=== PATIENT | female | born 1990 | race Hispanic/Latino ===

== ENCOUNTER → 2016-11-23 | Outpatient (REF) | payer OTHER | LOC: M SFHCLUC 16:52 | PROVIDERS: ATTEND Nurse Practitioner Family | DX: J02.9 Acute pharyngitis, unspecified (principal) ==

== ENCOUNTER → 2017-03-01 | Outpatient (CLI) | payer OTHER | LOC: M LDO 19:29 | DX: O26.893 Other specified pregnancy related conditions, third trimester (principal); Z3A.32 32 weeks gestation of pregnancy; R10.2 Pelvic and perineal pain | CPT/HCPCS: 59025 ==

== ENCOUNTER 2017-03-11 14:29 | Emergency (ER) | payer OTHER ==
[2017-03-11] MEDS: ONDANSETRON 4 MG ORAL DISINTEGRATING TAB (S0181) PO (18:30)
[2017-03-11 19:15] LABS: INFLUENZA A AMPLIFICATION NEGATIVE (NEGATIVE); INFLUENZA B AMPLIFICATION NEGATIVE (NEGATIVE); RSV AMPLIFICATION NEGATIVE (NEGATIVE)
== END 2017-03-11 19:51 | disposition home or self-care (01) ==
LOC: M ED 14:29
DX: O98.513 Other viral diseases complicating pregnancy, third trimester (principal); J02.9 Acute pharyngitis, unspecified; Z3A.34 34 weeks gestation of pregnancy; Z20.828 Contact with and (suspected) exposure to other viral communicable diseases
CPT/HCPCS: 87081

== ENCOUNTER 2017-04-14 09:32 | Inpatient (IN) | payer OTHER ==
[2017-04-14 11:55] LABS: HEMATOCRIT 33.6 % (36.0-47.0); HEMOGLOBIN 10.9 g/dl (12.0-16.0); MEAN CORPUSCULAR HEMOGLOBIN 25.9 pg (27.0-33.0); MEAN CORPUSCULAR HGB CONC 32.4 g/dl (32.0-36.5); MEAN CORPUSCULAR VOLUME 79.8 fl (80.0-96.0); PLATELET COUNT, AUTOMATED 140 10^3/uL (150-450); RED BLOOD COUNT 4.21 10^6/uL (4.00-5.40); RED CELL DISTRIBUTION WIDTH 14.1 % (11.5-14.5)
[2017-04-14] MEDS: miSOPROStol 50 MCG 1/2 TAB (S0191) PO ×2 (12:41→18:02)
[2017-04-14] MEDS: LR 1,000 ML IV ×2 (19:29→23:30)
[2017-04-14] MEDS: BUTORPHANOL 2 MG/ML INJ (J0595) IV (20:47)
[2017-04-14] MEDS: LACTATED RINGER'S 1000 ML IV (22:00)
[2017-04-14] MEDS ORDERED: FENTANYL 2MCG/ML ROPIVACAINE 0.2% IN 0.9% NACL 200ML IVBAG As Ordered (23:04)
[2017-04-15] MEDS ORDERED: ePHEDrine SULFATE 25 MG/5 ML(5MG/ML) SYRINGE As Ordered (00:04)
[2017-04-15] MEDS: ePHEDrine SULFATE 25 MG/5 ML(5MG/ML) SYRINGE IV ×2 (00:13→00:23)
[2017-04-15] MEDS ORDERED: OXYTOCIN DRIP 30 UNITS in APPROPRIATE DILUENT 1 EA IV (00:15)
[2017-04-15] MEDS ORDERED: ONDANSETRON 4MG/2ML VIAL (J2405) IV (00:45)
[2017-04-15] MEDS ORDERED: EPIDURAL/PCA KEYS XX (00:45)
[2017-04-15] MEDS ORDERED: REFRIGERATOR IV KEYS XX (00:45)
[2017-04-15] MEDS ORDERED: LACTATED RINGER'S 1000 ML IV (00:45)
[2017-04-15] MEDS ORDERED: diphenhydrAMINE INJ 50MG/ML VIAL (J1200) IV (00:45)
[2017-04-15] MEDS: FENTANYL/ROPIVACAINE/NACL BAG 200 ML EPIDURAL (00:45)
[2017-04-15] MEDS ORDERED: NALOXONE INJ 0.4 MG/1 ML VIAL (J2310) IV (00:45)
[2017-04-15] MEDS ORDERED: EPIDURAL COMMENT XX (00:45)
[2017-04-15] MEDS: OXYTOCIN DRIP 30 UNITS in APPROPRIATE DILUENT 1 EA IV (03:02)
[2017-04-15] MEDS: miSOPROStol 200 MCG TAB (S0191) PR (03:15)
[2017-04-15] MEDS ORDERED: DOCUSATE SODIUM 100 MG CAP PO (03:15)
[2017-04-15] MEDS ORDERED: DIBUCAINE 1% OINTMENT 30GM TOP (03:15)
[2017-04-15] MEDS: LR 1,000 ML IV (03:29)
[2017-04-15] MEDS: IBUPROFEN 800 MG TAB PO ×2 (06:10→17:31)
[2017-04-15] MEDS: PRENATAL VITAMINS CHEWABLE TABLET PO (07:25)
[2017-04-15] MEDS: MEASLES,MUMPS,RUBELLA VACCINE INJ (MMR-II) (90707) SC (09:07)
[2017-04-15] MEDS: RHOGAM 300 MCG (1500 IU) INJ (J2790) IM (09:07)
[2017-04-15] MEDS: ACETAMINOPHEN 500 MG TAB PO (12:55)
[2017-04-16] MEDS: PRENATAL VITAMINS CHEWABLE TABLET PO (09:00)
== END 2017-04-16 12:45 | disposition home or self-care (01) | DRG 775 ==
LOC: M LDO 09:32 → M OBS 04-15 05:30 → M LDI 11:43
PROVIDERS: Obstetrics & Gynecology
PROC: 10E0XZZ Delivery of Products of Conception, External Approach (ICD-10-PCS; principal; 2017-04-15)
DX: O42.02 Full-term premature rupture of membranes, onset of labor within 24 hours of rupture (principal); Z37.0 Single live birth; Z3A.39 39 weeks gestation of pregnancy